=== PATIENT | female | born 1935 | race Caucasian/White ===

== ENCOUNTER 2017-12-24 18:19 | Emergency (ER) | payer OTHER ==
[~2017-12-24 18:19] MED LIST: HYDR-3533 PO; LATA.005%O EACH EYE; SIMV20TA PO; ULTR50TA PO; glaucoma eye drops EACH EYE
[2017-12-24 18:25] VITALS: BP 118/57; PULSE 88; RESP 20; TEMP 97.7; O2SAT 94
[2017-12-24] MEDS ORDERED: IBAN150T3 PO (18:47)
[2017-12-24] MEDS ORDERED: TRAV0.00 EACH EYE (18:47)
[2017-12-24] MEDS ORDERED: SIMV20TA PO (18:47)
[2017-12-24] MEDS ORDERED: TIMO5TAB PO (18:47)
[2017-12-24] MEDS ORDERED: BACT800T5 PO (18:48)
--- NOTE | 2017-12-24 18:59 | PD ---
HPI Chief Complaint: Respiratory Symptoms Time Seen by Provider: 18:36 Travel History International Travel<30 days: No Contact w/Intl Traveler<30days: No Traveled to known affect area: No History of Present Illness HPI 82yo F with PMH of HLD presents to the ED with c/o cough, sob and chest tightness for about 6 days. Pt said her PMD Dr. Zhang 3 days ago and was started on bactrim to prevent infection. Pt said her symptoms has worsen since then. Pt's chest tightness is with coughing and midsternal. Denies smoking cig. Denies any fever, n/v, abdominal pain, focal weakness or numbness. PFSH Past Medical History Arthritis: Yes Asthma: No Autoimmune Disease: No Blood Disorders: No Anxiety: No Depression: No Heart Rhythm Problems: No Cancer: No Cardiovascular Problems: No High Cholesterol: Yes Chemotherapy: No Chest Pain: No Congestive Heart Failure: No COPD: No Cerebrovascular Accident: No Diabetes: No Diminished Hearing: No Endocrine: No Gastrointestinal Disorders: Yes (hx of constipation) GERD: No Glaucoma: No Genitourinary: No Headaches: No Hepatitis: No Hiatal Hernia: No Hypertension: No Immune Disorder: No Kidney Stones: Yes Musculoskeletal: Yes (ARTHRITIS) Neurologic: No Psychiatric: No Reproductive: No Respiratory: No Myocardial Infarction: No Radiation Therapy: No Renal Failure: No Seizures: No Sickle Cell Disease: No Sleep Apnea: No Thyroid Disease: No Ulcer: No Influenza Vaccination: No Menopausal: Yes Past Surgical History Abdominal Surgery: Yes (APPENDECTOMY) AICD: No Appendectomy: Yes Arteriovenous Shunt: No Cardiac Surgery: No Cholecystectomy: Yes Ear Surgery: No Endocrine Surgery: No Eye Surgery: No Genitourinary Surgery: Yes (LITHOTRIPSY) Gynecologic Surgery: Yes (HYSTERECTOMY) Hysterectomy: Yes (COMPLETE) Insulin Pump: No Joint Replacement: Yes (bilat knees) Neurologic Surgery: No Oral Surgery: No Thoracic Surgery: No Other Surgery: Yes (right kidney surgery for removal of kidney stone) Social History Alcohol Use: No Tobacco Use: No Substance Use: No Allergies-Medications (Allergen,Severity, Reaction): Coded Allergies: acetaminophen (Unverified Allergy, Severe, NAUSEA, 05/17/17) oxycodone (Unverified Allergy, Severe, NAUSEA, 05/17/17) Reported Meds & Prescriptions Reported Meds & Active Scripts Active Reported Bactrim DS (Sulfamethoxazole-Trimethoprim) 800-160 Mg Tab 1 Tab PO BID Timolol (Timolol Maleate) 5 Mg Tab 5 Mg PO BID Travatan Z Opth Drops (Travoprost) 0.004 % Soln 1 Drop EACH EYE HS Ibandronate (Ibandronate Sodium) 150 Mg Tab 150 Mg PO Q28D Simvastatin 20 Mg Tab 20 Mg PO DAILY Review of Systems Except as stated in HPI: all other systems reviewed are Neg Physical Exam Narrative GENERAL: 82yo F in mild distress. SKIN: Focused skin assessment warm/dry. HEAD: Atraumatic. Normocephalic. EYES: Pupils equal and round. No scleral icterus. No injection or drainage. ENT: No nasal bleeding or discharge. Mucous membranes pink and moist. NECK: Trachea midline. No JVD. CARDIOVASCULAR: Regular rate and rhythm. No murmur appreciated. RESPIRATORY: No accessory muscle use. End expiratory wheezing bilaterally. GASTROINTESTINAL: Abdomen soft, non-tender, nondistended. Hepatic and splenic margins not palpable. MUSCULOSKELETAL: No obvious deformities. No clubbing. No cyanosis. Trace bilateral lower extremity edema. NEUROLOGICAL: Awake and alert. No obvious cranial nerve deficits. Motor grossly within normal limits. Normal speech. PSYCHIATRIC: Appropriate mood and affect; insight and judgment normal. Data Data Last Documented VS Vital Signs Date Time Temp Pulse Resp B/P (MAP) Pulse Ox O2 Delivery O2 Flow Rate FiO2 12/24/17 20:00 84 18 109/60 (76) 94 Room Air 12/24/17 19:08 21 12/24/17 18:25 97.7 Orders Orders Complete Blood Count With Diff (12/24/17 18:53) Basic Metabolic Panel (Bmp) (12/24/17 18:53) B-Type Natriuretic Peptide (12/24/17 18:53) Troponin I (12/24/17 18:53) Influenzae A/B Antigen (12/24/17 18:53) Electrocardiogram (12/24/17 18:53) Chest, Single Ap (12/24/17 18:53) Methylprednisolone So Succ Inj (Solumedr (12/24/17 19:00) Albuterol-Ipratropium Neb (Duoneb Neb) (12/24/17 19:00) Albuterol Neb (Albuterol Neb) (12/24/17 20:30) Guaifen-Dm 200-20 Mg/10 Ml Liq (Robituss (12/24/17 20:45) Labs Laboratory Tests Test 12/24/17 19:25 White Blood Count 5.5 TH/MM3 Red Blood Count 5.23 MIL/MM3 Hemoglobin 14.2 GM/DL Hematocrit 42.5 % Mean Corpuscular Volume 81.3 FL Mean Corpuscular Hemoglobin 27.1 PG Mean Corpuscular Hemoglobin Concent 33.4 % Red Cell Distribution Width 13.7 % Platelet Count 232 TH/MM3 Mean Platelet Volume 8.9 FL Neutrophils (%) (Auto) 54.8 % Lymphocytes (%) (Auto) 35.0 % Monocytes (%) (Auto) 6.5 % Eosinophils (%) (Auto) 3.0 % Basophils (%) (Auto) 0.7 % Neutrophils # (Auto) 3.0 TH/MM3 Lymphocytes # (Auto) 1.9 TH/MM3 Monocytes # (Auto) 0.4 TH/MM3 Eosinophils # (Auto) 0.2 TH/MM3 Basophils # (Auto) 0.0 TH/MM3 CBC Comment DIFF FINAL Differential Comment Blood Urea Nitrogen 14 MG/DL Creatinine 0.92 MG/DL Random Glucose 100 MG/DL Calcium Level 8.2 MG/DL Sodium Level 136 MEQ/L Potassium Level 3.9 MEQ/L Chloride Level 105 MEQ/L Carbon Dioxide Level 21.0 MEQ/L Anion Gap 10 MEQ/L Estimat Glomerular Filtration Rate 58 ML/MIN Troponin I 0.04 NG/ML B-Type Natriuretic Peptide 210 PG/ML MDM Medical Decision Making Medical Screen Exam Complete: Yes Emergency Medical Condition: Yes Interpretation(s) EKG: NSR 83bpm. LAD. Q wave III, aVF. No significant ST elevation. Mild ST depression V3. Differential Diagnosis Pneumonia vs. bronchitis vs. reactive airway disease vs. ACS Narrative Course 82yo F here with cough, sob and chest tightness for 6 days. Pt has mild wheezing on exam so given duonebs and methylprednisolone. Chest tightness is only with cough and do not think it is cardiac. Labs reviewed, no leukocytosis. H/H normal. BNP is mildly elevated at 210. BMP unremarkable. Troponin negative. Influenza negative. CXR showed no acute disease. O2 sat ranges between 93-95% on RA. Pt reevaluated at bedside after treatment and said she feels better. Still has some sob and wheezing so ordered another treatment. Pt offered observation admission but is adamantly refusing. Said she wants to go home. Pt lives with granddaughter who is here with her so instructed to return immediately if symptoms worsen. Pt reevaluated after robitussin and 4th treatment and said she feels fine and wants to go home. Return precautions given. Diagnosis Primary Impression: Bronchitis Patient Instructions: General Instructions Departure Forms: Tests/Procedures Additional Instructions: Please return to the ED if symptoms worsen. Please follow up with your primary care physician in 2-3 days. Med/Other Pt SpecificInfo: Prescription(s) given Scripts Dextromethorphan (Robitussin Lingering Cold) 15 Mg Cap 30 MG PO Q8H Y for COUGH for 5 Days, #30 CAP 0 Refills Prov: Nereyda Willingham DO 12/24/17 Albuterol 18 GM Inh (Ventolin Hfa 18 GM Inh) 90 Mcg/Act Aer 2 PUFF INH Q4H Y for SHORTNESS OF BREATH, #1 INHALER 0 Refills Prov: Nereyda Willingham DO 12/24/17 Prednisone (Prednisone) 20 Mg Tab 20 MG PO BID for 5 Days, #10 TAB 0 Refills Prov: Nereyda Willingham DO 12/24/17 Disposition: 01 DISCHARGE HOME Condition: Stable Nereyda Willingham DO Dec 24, 2017 18:59
[2017-12-24 19:00] VITALS: BP 107/55; PULSE 87; RESP 20; O2SAT 94
[2017-12-24] MEDS ORDERED: methylPREDNISolone SOD SUCC 125 MG/2 ML VIAL IV PUSH ONE (19:00)
[2017-12-24] MEDS: RESP: ALBUTEROL 2.5 MG/IPRATROPIUM 0.5 MG NEB (SCH) INH ×2 (19:06→19:07)
[2017-12-24 19:08] VITALS: O2SAT 93
[2017-12-24 19:35] LABS: BASOPHIL % 0.7 % (0.0-2.0); EOSINOPHIL # 0.2 TH/MM3 (0-0.4); HEMATOCRIT 42.5 % (35.0-46.0); HEMOGLOBIN 14.2 GM/DL (11.6-15.3); LYMPHOCYTE # 1.9 TH/MM3 (1.0-4.8); MEAN CELL VOLUME 81.3 FL (80.0-100.0); MEAN CORPUSCULAR HEMOGLOBIN 27.1 PG (27.0-34.0); MEAN CORPUSCULAR HGB CONC 33.4 % (32.0-36.0); MEAN PLATELET VOLUME 8.9 FL (7.0-11.0); MONO % 6.5 % (0.0-8.0); MONOCYTE # 0.4 TH/MM3 (0-0.9); NEUT % 54.8 % (16.0-70.0); PLATELET COUNT 232 TH/MM3 (150-450); RED BLOOD COUNT 5.23 MIL/MM3 (4.00-5.30); RED CELL DISTRIBUTION WIDTH 13.7 % (11.6-17.2); WHITE BLOOD COUNT 5.5 TH/MM3 (4.0-11.0)
[2017-12-24 19:43] LABS: CALCIUM 8.2 MG/DL (8.5-10.1)
[2017-12-24 19:47] LABS: CREATININE 0.92 MG/DL (0.50-1.00)
--- NOTE | 2017-12-24 19:51 | RADRPT ---
EXAM DATE/TIME: 12/24/2017 19:00 [facility] COMPARISON: No previous studies available for comparison. INDICATIONS : Chest congestion and cough. Chest pain. MEDICAL HISTORY : None. SURGICAL HISTORY : None. ENCOUNTER: Initial ACUITY: 1 week PAIN SCORE: 4/10 LOCATION: Bilateral chest FINDINGS: A single view of the chest demonstrates the lungs to be symmetrically aerated without evidence of mas s, infiltrate or effusion. The cardiomediastinal contours are unremarkable. Osseous structures are intact. CONCLUSION: No acute disease. Alejandro Alexandre MD FACR on December 24, 2017 at 19:48 Board Certified Radiologist. This report was verified electronically.
[2017-12-24 19:52] LABS: TROPONIN I 0.04 NG/ML (0.02-0.05)
[2017-12-24 20:00] VITALS: BP 109/60; PULSE 84; RESP 18; O2SAT 94
[2017-12-24] MEDS ORDERED: RESP: ALBUTEROL 2.5 MG/3 ML NEB (SCH) NEB ONE (20:30)
[2017-12-24] MEDS ORDERED: guaiFENesin/DEXTROMETHORPHAN 200 MG/20 MG/10 ML CUP PO ONE (20:45)
[2017-12-24] MEDS ORDERED: PRED20 PO (21:12)
[2017-12-24] MEDS ORDERED: VENTAER INH (21:12)
[2017-12-24] MEDS ORDERED: ROBICAP2 PO (21:12)
[2017-12-24 21:28] VITALS: BP 106/70
--- NOTE | 2017-12-25 19:53 | EKG ---
Date Performed: 12/24/2017 Time Performed: 19:04:20 PTAGE: 82 years EKG: Sinus rhythm POSSIBLE RIGHT VENTRICULAR CONDUCTION DELAY LEFT ANTERIOR FASCICULAR BLOCK LATERAL MYOCARDIAL INFARC TION INFERIOR MYOCARDIAL INFARCTION Since the previous tracing, no significant change noted ABNORMAL ECG PREVIOUS TRACING : 08/13/2015 10.10 DOCTOR: Marleny Martínez Interpretating Date/Time 12/25/2017 19:49:22
== END 2017-12-24 21:42 | disposition home or self-care (01) ==
LOC: PHED 18:19
DX: J40 Bronchitis, not specified as acute or chronic (principal); E78.00 Pure hypercholesterolemia, unspecified; R06.02 Shortness of breath
CPT/HCPCS: 71045; 80048; 83880; 84484; 85025; 87804; 93005; 94640; 94664; 96374; 99285; J2930; J7613

== ENCOUNTER 2018-09-20 13:12 | Observation (INO) ==
--- NOTE | 2018-09-20 13:35 | ED ---
HPI General Chief Complaint: Chest Pain Stated Complaint: Chest pain x this am Time Seen by Provider: 09/20/18 13:26 History of Present Illness HPI narrative: Patient is a 83-year-old female with history of high blood pressure, atrial fibrillation on Eliquis, presented today to emergency room for chest pain, multiple episodes lasted seconds since 6:30 in the morning. Patient denies dyspnea, feels weak. Vitals stable. She denies also fever, abdominal pain, has mild middle back pain. Related Data Home Medications Medication Instructions Recorded Confirmed dorzolamide-timolol 1 drp OPHTHALMIC (EYE) BID 09/08/18 09/20/18 ibandronate 150 mg PO QMONTH 09/08/18 09/20/18 simvastatin 5 mg PO QPM 09/08/18 09/20/18 travoprost [Travatan Z] 1 drp OPHTHALMIC (EYE) QPM 09/08/18 09/20/18 Previous Rx's Medication Instructions Recorded apixaban [Eliquis] 5 mg PO BID #60 tab 09/09/18 metoprolol tartrate 12.5 mg PO BID #30 tab 09/09/18 Allergies Allergy/AdvReac Type Severity Reaction Status Date / Time oxycodone AdvReac Intermediate NAUSEA Verified 09/20/18 13:39 Review of Systems ROS: all other systems reviewed are negative Cardiovascular Reports chest pain PMFSH Family History Family History Sister Family history of heart disease Family history of leukemia Brother Family history of diabetes mellitus Social History Social History Substance History: No History of Abuse Second Hand Smoke Exposure: No Smoking Status: Never smoker How Often Do You Have a Drink Containing Alcohol: Never Recent Travel in [facility] within the Last 8 Weeks: No Recent Out of Country Travel within the Last 8 Weeks: No Exam Narrative Exam Narrative: GENERAL: 83-year-old female in no apparent distress. SKIN: Focused skin assessment warm/dry. HEAD: Atraumatic. Normocephalic. EYES: Pupils equal and round. No scleral icterus. No injection or drainage. ENT: No nasal bleeding or discharge. Mucous membranes pink and moist. NECK: Trachea midline. No JVD. CARDIOVASCULAR: Regular rate and rhythm. No murmur appreciated. RESPIRATORY: No accessory muscle use. Clear to auscultation. Breath sounds equal bilaterally. GASTROINTESTINAL: Abdomen soft, non-tender, nondistended. Hepatic and splenic margins not palpable. MUSCULOSKELETAL: No obvious deformities. No clubbing. No cyanosis. No edema. NEUROLOGICAL: Awake and alert. No obvious cranial nerve deficits. Motor grossly within normal limits. Normal speech. PSYCHIATRIC: Appropriate mood and affect; insight and judgment normal. Course Initial Documented Vital Signs Pulse Rate 63 09/20/18 13:25 Pulse Oximetry 96 09/20/18 13:25 Last Documented Vital Signs Temperature 98 F 09/20/18 13:36 Pulse Rate 63 09/20/18 13:56 Respiratory Rate 16 09/20/18 13:56 Blood Pressure 96/51 L 09/20/18 13:56 Pulse Oximetry 96 09/20/18 13:56 Medical Decision Making MDM Narrative Medical decision making narrative: 83-year-old female presented for chest pain, multiple episodes for the last 7 hours, no dyspnea. Cardiac workup ordered. EKG Is within normal limits. Results are pending. 1520: Patient feels better, chest pain resolved, blood pressure improved systolic is 140, first set of cardiac enzymes is normal, patient has UTI as per urine analysis report, treated with Cipro. Patient needs to be admitted to observation for further evaluation for chest pain rule out ACS. Case discussed with Dr. Ann, who agreed with admission to chest pain center. Medical Screen Exam Complete: Yes Emergency Medical Condition: Yes Differential Diagnosis Differential Diagnosis: Chest pain rule out ACS versus A. fib versus musculoskeletal pain. Lab Data Result diagrams: 09/20/18 13:45 09/20/18 13:45 Lab Results 09/20/18 09/20/18 09/20/18 Range/Units 13:45 13:45 13:45 CBC w Diff Auto diff final WBC 8.4 (4.0-11.0) th/mm3 RBC 4.66 (4.00-5.30) mil/mm3 Hgb 12.5 (11.6-15.3) gm/dL Hct 39.0 (35.0-46.0) % MCV 83.8 (80.0-100.0) fL MCH 26.8 L (27.0-34.0) pg MCHC 32.0 (32.0-36.0) % RDW 13.4 (11.6-17.2) % Plt Count 263 D (150-450) th/mm3 MPV 8.7 (7.0-11.0) fL Neut % (Auto) 78.9 H (16.0-70.0) % Lymph % (Auto) 11.9 (9.0-44.0) % [place] % (Auto) 4.4 (0.0-8.0) % Eos % (Auto) 2.4 (0.0-4.0) % Baso % (Auto) 2.4 H (0.0-2.0) % Neut # (Auto) 6.6 (1.8-7.7) th/mm3 Lymph # (Auto) 1.0 (1.0-4.8) th/mm3 [place] # (Auto) 0.4 (0.0-0.9) th/mm3 Eos # (Auto) 0.2 (0.0-0.4) th/mm3 Baso # (Auto) 0.2 (0.0-0.2) th/mm3 WBC Differential . Differential Comment . PT 11.4 (9.8-11.6) sec INR 1.1 Ratio APTT 29.9 (23.4-31.7) sec Sodium 139 (136-145) meq/L Potassium 4.1 (3.5-5.1) meq/L Chloride 107 (98-107) meq/L Carbon Dioxide 24.4 (21.0-32.0) meq/L Anion Gap 8 (5-15) meq/L BUN 14 (7-18) mg/dL Creatinine 0.71 (0.50-1.00) mg/dL Estimated GFR 79 L (>89) mL/min Random Glucose 102 (74-106) mg/dL Calcium 8.1 L (8.5-10.1) mg/dL Total Bilirubin 0.6 (0.2-1.0) mg/dL AST 14 L (15-37) U/L ALT 15 (10-53) U/L Alkaline Phosphatase 56 (45-117) U/L Troponin I Less than 0.02 L (0.02-0.05) ng/mL B-Natriuretic Peptide (0-100) pg/mL Total Protein 7.2 (6.4-8.2) g/dL Albumin 3.2 L (3.4-5.0) g/dL Urine Color (Yellw/Straw) Urine Clarity (Clear) Urine pH (5.0-8.5) Ur Specific [place] (1.002-1.035) Urine Protein (Neg-Trace) mg/dL Urine Glucose (UA) (Negative) mg/dL Urine Ketones (Negative) mg/dL Urine Occult Blood (Negative) Urine Nitrate (Negative) Urine Bilirubin (Negative) Urine Urobilinogen (Less than 2) mg/dL Ur Leukocyte Esterase (Negative) Urine RBC (0-3) /hpf Urine WBC (0-5) /hpf Urine WBC Clumps (None) Ur Squamous Epith Cells (0-5) /hpf Urine Bacteria (None) /hpf Micro UA Comment Ur Microscopic Review Urine Culture Comments 09/20/18 09/20/18 Range/Units 13:45 15:05 CBC w Diff WBC (4.0-11.0) th/mm3 RBC (4.00-5.30) mil/mm3 Hgb (11.6-15.3) gm/dL Hct (35.0-46.0) % MCV (80.0-100.0) fL MCH (27.0-34.0) pg MCHC (32.0-36.0) % RDW (11.6-17.2) % Plt Count (150-450) th/mm3 MPV (7.0-11.0) fL Neut % (Auto) (16.0-70.0) % Lymph % (Auto) (9.0-44.0) % [place] % (Auto) (0.0-8.0) % Eos % (Auto) (0.0-4.0) % Baso % (Auto) (0.0-2.0) % Neut # (Auto) (1.8-7.7) th/mm3 Lymph # (Auto) (1.0-4.8) th/mm3 [place] # (Auto) (0.0-0.9) th/mm3 Eos # (Auto) (0.0-0.4) th/mm3 Baso # (Auto) (0.0-0.2) th/mm3 WBC Differential Differential Comment PT (9.8-11.6) sec INR Ratio APTT (23.4-31.7) sec Sodium (136-145) meq/L Potassium (3.5-5.1) meq/L Chloride (98-107) meq/L Carbon Dioxide (21.0-32.0) meq/L Anion Gap (5-15) meq/L BUN (7-18) mg/dL Creatinine (0.50-1.00) mg/dL Estimated GFR (>89) mL/min Random Glucose (74-106) mg/dL Calcium (8.5-10.1) mg/dL Total Bilirubin (0.2-1.0) mg/dL AST (15-37) U/L ALT (10-53) U/L Alkaline Phosphatase (45-117) U/L Troponin I (0.02-0.05) ng/mL B-Natriuretic Peptide 138 H (0-100) pg/mL Total Protein (6.4-8.2) g/dL Albumin (3.4-5.0) g/dL Urine Color Yellow (Yellw/Straw) Urine Clarity Cloudy H (Clear) Urine pH 7.0 (5.0-8.5) Ur Specific [place] 1.010 (1.002-1.035) Urine Protein Negative (Neg-Trace) mg/dL Urine Glucose (UA) Negative (Negative) mg/dL Urine Ketones Negative (Negative) mg/dL Urine Occult Blood Small H (Negative) Urine Nitrate Positive H (Negative) Urine Bilirubin Negative (Negative) Urine Urobilinogen 2.0 H (Less than 2) mg/dL Ur Leukocyte Esterase Trace H (Negative) Urine RBC 0-3 (0-3) /hpf Urine WBC 9-20 H (0-5) /hpf Urine WBC Clumps Few H (None) Ur Squamous Epith Cells 6-10 H (0-5) /hpf Urine Bacteria Many H (None) /hpf Micro UA Comment Culture indicated Ur Microscopic Review Microscopic reviewed Urine Culture Comments Culture indicated Imaging Data Radiologist's impression: Chest X-Ray 09/20/18 13:32 CONCLUSION: 1. Small left pleural effusion. 2. No focal infiltrate or pulmonary vascular congestion. ECG Data EKG Prior to Arrival: No Attestation: I personally reviewed and interpreted this ECG as follows: Prior ECG tracings: available for review Interpretation: Normal sinus rhythm at rate 67, incomplete right bundle branch block, no ST elevation. Discharge Plan Discharge Disposition Patient Disposition: ED Admit(ED Internal Use Only) Discharge Condition Condition: Fair Discharge Order Discharge Orders: ED Use Only Admit Order (Routine); Ordered 09/20/18 Ordered By: Osmani Yanes Discharge Details Diagnosis: Atypical chest pain, Acute UTI (urinary tract infection) Physicians Team ED Provider: Osmani Yanes Primary Care Provider: Dina Zhang Rxs /Orders / Referrals /Forms Prescriptions: No Action travoprost [Travatan Z] 0.004 % Drops 1 drp OPHTHALMIC (EYE) QPM RF: 0 simvastatin 5 mg Tablet 5 mg PO QPM RF: 0 dorzolamide-timolol 22.3-6.8 mg/mL Drops 1 drp OPHTHALMIC (EYE) BID RF: 0 ibandronate 150 mg Tablet 150 mg PO QMONTH RF: 0 metoprolol tartrate 25 mg Tablet 12.5 mg PO BID Qty: 30 RF: 0 apixaban [Eliquis] 5 mg Tablet 5 mg PO BID Qty: 60 RF: 0 Discharge Instructions Patient Printed Instructions: Chest Pain (ED) Discharge Interventions Interventions: Vital Signs Last Done: 09/20/18 13:56 Status ED Status: Admitted Observation Patient
[2018-09-20] MEDS ORDERED: Sod Chloride 0.9% Inj 1,000 ML IV.SIG SCH (14:00)
[2018-09-20 14:02] LABS: Baso # (Auto) 0.2 th/mm3 (0.0-0.2); Baso % (Auto) 2.4 % (0.0-2.0); Eos # (Auto) 0.2 th/mm3 (0.0-0.4); Eos % (Auto) 2.4 % (0.0-4.0); Hemoglobin 12.5 gm/dL (11.6-15.3); Lymph % (Auto) 11.9 % (9.0-44.0); Mean Corpuscular Hemoglobin 26.8 pg (27.0-34.0); Mean Corpuscular Volume 83.8 fL (80.0-100.0); Mean Platelet Volume 8.7 fL (7.0-11.0); Mono # (Auto) 0.4 th/mm3 (0.0-0.9); Mono % (Auto) 4.4 % (0.0-8.0); Neut # (Auto) 6.6 th/mm3 (1.8-7.7); Neut % (Auto) 78.9 % (16.0-70.0); Platelet Count 263 th/mm3 (150-450); Red Blood Count 4.66 mil/mm3 (4.00-5.30); Red Cell Distribution Width 13.4 % (11.6-17.2); White Blood Count 8.4 th/mm3 (4.0-11.0)
--- NOTE | 2018-09-20 14:06 | XR ---
EXAM DATE: 09/20/2018 1:44 PM EST AGE/SEX: 83 years / Female INDICATIONS: Chest pain. CLINICAL DATA: This is the patient's initial encounter. Patient reports that signs and symptoms have been present for 1 day and indicates a pain score of 3/10. MEDICAL/SURGICAL HISTORY: Hypercholesterolemia. Renal calculi. Osteoarthritis. A-fib. Compre ssion fx. Appendectomy. Cholecystectomy. Hysterectomy. Lithotripsy. COMPARISON: [facility], CHEST 1V SINGLE AP, 09/08/2018. . FINDINGS: Small left pleural effusion is noted. The heart is normal. The pulmonary vascular pattern is normal. The lungs are otherwise clear. CONCLUSION: 1. Small left pleural effusion. 2. No focal infiltrate or pulmonary vascular congestion. Electronically signed by: Misael Menendez MD Board Certified Radiologist 09/20/2018 2:04 PM EST
[2018-09-20 14:13] LABS: Chloride 107 meq/L (98-107); Potassium 4.1 meq/L (3.5-5.1); Sodium 139 meq/L (136-145)
[2018-09-20 14:16] LABS: Albumin 3.2 g/dL (3.4-5.0); Anion Gap 8 meq/L (5-15); Calcium 8.1 mg/dL (8.5-10.1); Carbon Dioxide 24.4 meq/L (21.0-32.0)
[2018-09-20 14:17] LABS: Blood Urea Nitrogen 14 mg/dL (7-18); Glucose,Random 102 mg/dL (74-106)
[2018-09-20 14:19] LABS: Alanine Aminotransferase 15 U/L (10-53)
[2018-09-20 14:20] LABS: Activated Partial Thrombo Time 29.9 sec (23.4-31.7); Aspartate Aminotransferase 14 U/L (15-37); Glomerular Filtration Rate 79 mL/min (>89); INR 1.1 Ratio; Prothrombin Time 11.4 sec (9.8-11.6)
[2018-09-20 14:21] LABS: Total Protein 7.2 g/dL (6.4-8.2)
[2018-09-20 14:22] LABS: Alkaline Phosphatase 56 U/L (45-117)
[2018-09-20] MEDS ORDERED: Morphine Sulfate Inj 2 MG/ML Vial IV.PUSH ONE (15:03)
[2018-09-20 15:12] LABS: Bilirubin,Urine Negative (Negative); Clarity,Urine Cloudy (Clear); Color,Urine Yellow (Yellw/Straw); Glucose,Urine (UA) Negative (Negative); Leukocyte Esterase,Urine Trace (Negative); Nitrite,Urine Positive (Negative)
[2018-09-20 15:16] LABS: RBC,Urine 0-3 /hpf (0-3)
[2018-09-20 15:17] LABS: Bacteria,Urine Many /hpf
[2018-09-20] MEDS ORDERED: Ciprofloxacin 500 MG Tablet PO ONE (15:18)
[2018-09-20] MEDS ORDERED: Regadenoson Inj 0.4 MG/5 ML Syringe IV.PUSH ONE (15:37)
[2018-09-20] MEDS ORDERED: Acetaminophen 500 MG Tablet PO PRN (17:16)
[2018-09-20] MEDS ORDERED: Morphine Inj 4 MG/ML Vial IV.PUSH PRN (17:16)
[2018-09-20] MEDS ORDERED: Melatonin 5 MG Tablet PO PRN (17:18)
--- NOTE | 2018-09-20 17:27 | P.HP ---
History of Present Illness Primary Care Physician: Dina Zhang MD Chief Complaint: chest pain History of Present Illness: 83-year-old female with known history of hyperlipidemia, glaucoma, kidney stones, lumbar compression fracture, recently diagnosed atrial fibrillation who presented for cold chills and chest heaviness. Patient was just recently in the hospital for new onset atrial fibrillation. Patient was given Cardizem at that time and converted to normal sinus rhythm. Patient was diagnosed with paroxysmal atrial fibrillation, patient was ruled out for acute coronary event with serial cardiac enzymes that were negative. Director Of Food And Beverage Services evaluated the patient and because of her chads score of 2 patient was started on Eliquis for anticoagulation and was started on metoprolol for rate control. Patient did undergo echocardiogram at that time which did show ejection fraction 55-60% with normal ventricular function. Mild aortic valve stenosis. Patient was doing fine at home until this morning when she got up at approximately 8 AM and started developing some extremity shaking and cold sensation. Approximately 2 hours after that she felt a heaviness in her chest in which she described as a 6/10 on a pain scale that radiated into her back. Denied any diaphoresis, shortness of breath, dyspnea. Because the discomfort persisted she was brought to the ER by her family for further evaluation. Patient did have workup done in emergency department with unremarkable cardiac enzymes and EKG indicating sinus rhythm with incomplete right bundle branch block. ER physician did contact cardiology person investigator who recommended that the patient be observed in the chest pain center. Upon evaluating the patient this afternoon she does continue to have the discomfort which has remained constant without any improvement with medications. Further workup indicated possible urinary tract infection. - Diagnosis (1) Atypical chest pain (2) Acute UTI (urinary tract infection) Review of Systems All other systems reviewed negative except as stated in HPI Constitutional: Reports chills Cardiovascular: Reports chest pain PMFSH - History History Provided By: Patient - Medical History Medical History: Medical History (Last Reviewed 09/20/18 @ 17:24 by GWEN Hurd) Glaucoma High cholesterol History of compression fracture of spine Kidney stone Osteoarthritis - Surgical History Surgical History: Surgical History (Last Reviewed 09/20/18 @ 17:24 by GWEN Hurd) History of appendectomy History of hysterectomy History of lithotripsy Hx of cholecystectomy Knee joint replacement status - Family History Family History: Family History (Last Reviewed 09/20/18 @ 17:24 by GWEN Hurd) Sister Family history of heart disease Family history of leukemia Brother Family history of diabetes mellitus - Tobacco History Second Hand Smoke Exposure: No Tobacco Use In Past 30 Days: No Smoking Status: Never smoker - Alcohol History How Often Do You Have a Drink Containing Alcohol: Never - Substance Use History Substance History: No History of Abuse - Travel History Recent Travel in the [place] Within the Last 8 Weeks: No Recent Travel Out of the Country Within the Last 8 Weeks: No - Immunization History Tetanus Immunization: <5 Years Medications and Allergies Active Medications: Active Medications Acetaminophen (Tylenol) 500 mg PO Q4H PRN PRN Reason: HEADACHE Hydrocodone Bitart/Acetaminophen ([place] 7.5/325) 1 tab PO Q4H PRN PRN Reason: PAIN SCALE 1 TO 7 Apixaban (Eliquis) 5 mg PO BID [facility] Aspirin (Aspirin) 325 mg PO DAILY [facility] Dorzolamide/Timolol (Cosopt 2/0.5% Opth Drops) drop EACH EYE BID [facility] Melatonin (Melatonin) 5 mg PO HS PRN PRN Reason: INSOMNIA Metoprolol Tartrate (Lopressor) 12.5 mg PO BID [facility] Morphine Sulfate (Morphine Inj) 2 mg IV.PUSH Q4H PRN PRN Reason: PAIN SCALE 8 TO 10 Nitroglycerin (Nitrostat Sl) 0.4 mg SL Q5M PRN PRN Reason: CHEST PAIN Non-Formulary Medication (Simvastatin [Simvastatin]) 5 mg PO QPM [facility] Sodium Chloride (Ns Flush) 2 ml IV.FLUSH UNSCH PRN PRN Reason: FLUSH AFTER USING IV ACCESS Sodium Chloride (Ns Flush) 2 ml IV.FLUSH BID [facility] Allergies Allergy/AdvReac Type Severity Reaction Status Date / Time oxycodone AdvReac Intermediate NAUSEA Verified 09/20/18 13:39 Home Medications Medication Instructions Recorded Confirmed Type dorzolamide-timolol 1 drp OPHTHALMIC (EYE) BID 09/08/18 09/20/18 History ibandronate 150 mg PO QMONTH 09/08/18 09/20/18 History simvastatin 5 mg PO QPM 09/08/18 09/20/18 History travoprost [Travatan Z] 1 drp OPHTHALMIC (EYE) QPM 09/08/18 09/20/18 History Exam Vital signs: Vital Signs 09/20/18 13:25 09/20/18 13:34 09/20/18 13:36 Temperature 98 F 98 F Pulse Rate 63 66 66 Respiratory Rate 12 Blood Pressure 133/66 133/66 Pulse Oximetry 96 97 97 09/20/18 13:56 09/20/18 15:30 Temperature Pulse Rate 63 62 Respiratory Rate 16 16 Blood Pressure 96/51 L 140/61 Pulse Oximetry 96 96 Intake & Output 09/19/18 09/20/18 09/20/18 18:59 06:59 18:59 Intake Total 1000 / 1000 Balance 1000 / 1000 Weight 74 kg Intake: IV 1000 / 1000 NS Inj 1,000 ML @ 1000 mls/hr 1000 / 1000 IV.SIG BOLUS ALAN Rx#:[id number] Narrative: GENERAL: Well-developed, well-nourished, in no acute distress. alert and orientated HEENT: Head is normocephalic without any lesions or masses noted. Facial features are symmetric. Eyes: Pupils equal round reactive to light. Extraocular muscles are intact. Conjunctivae were clear. Oropharyngeal: Pharynx without any erythema edema. Tongue is midline without deviation. Buccal mucosa is moist without any masses or lesions NECK: Supple without any masses. Trachea midline no deviation. No JVD, no bruits are appreciated CARDIAC: Regular rhythm, regular rate. S1/S2 are heard. 2/6 ejection murmur, no gallops or rubs. LUNGS: Clear to auscultation bilaterally. No wheeze, rhonchi or rales. No use of accessory muscles on inspiration or expiration. ABDOMEN: Soft, nontender. Nondistended. Bowel sounds heard in all 4 quadrants. No organomegaly or masses. Negative rebound, negative guarding EXTREMITIES: No edema, pulses are equal bilaterally. No cyanosis or clubbing NEUROLOGY: Mood and affect appear appropriate. Cranial nerves II through XII grossly intact. Muscle strength 5/5 in upper and lower extremities bilaterally. Deep tendon reflexes are 2+ in upper and lower extremities bilaterally. Results - Labs CBC & Chem 7: 09/20/18 13:45 09/20/18 13:45 Labs: Laboratory Results - last 24 hr 09/20/18 09/20/18 09/20/18 13:45 13:45 13:45 CBC w Diff Auto diff final WBC 8.4 RBC 4.66 Hgb 12.5 Hct 39.0 MCV 83.8 MCH 26.8 L MCHC 32.0 RDW 13.4 Plt Count 263 D MPV 8.7 Neut % (Auto) 78.9 H Lymph % (Auto) 11.9 [place] % (Auto) 4.4 Eos % (Auto) 2.4 Baso % (Auto) 2.4 H Neut # (Auto) 6.6 Lymph # (Auto) 1.0 [place] # (Auto) 0.4 Eos # (Auto) 0.2 Baso # (Auto) 0.2 WBC Differential . Differential Comment . PT 11.4 INR 1.1 APTT 29.9 Sodium 139 Potassium 4.1 Chloride 107 Carbon Dioxide 24.4 Anion Gap 8 BUN 14 Creatinine 0.71 Estimated GFR 79 L Random Glucose 102 Calcium 8.1 L Total Bilirubin 0.6 AST 14 L ALT 15 Alkaline Phosphatase 56 Troponin I Less than 0.02 L B-Natriuretic Peptide Total Protein 7.2 Albumin 3.2 L Urine Color Urine Clarity Urine pH Ur Specific [place] Urine Protein Urine Glucose (UA) Urine Ketones Urine Occult Blood Urine Nitrate Urine Bilirubin Urine Urobilinogen Ur Leukocyte Esterase Urine RBC Urine WBC Urine WBC Clumps Ur Squamous Epith Cells Urine Bacteria Micro UA Comment Ur Microscopic Review Urine Culture Comments 09/20/18 09/20/18 13:45 15:05 CBC w Diff WBC RBC Hgb Hct MCV MCH MCHC RDW Plt Count MPV Neut % (Auto) Lymph % (Auto) [place] % (Auto) Eos % (Auto) Baso % (Auto) Neut # (Auto) Lymph # (Auto) [place] # (Auto) Eos # (Auto) Baso # (Auto) WBC Differential Differential Comment PT INR APTT Sodium Potassium Chloride Carbon Dioxide Anion Gap BUN Creatinine Estimated GFR Random Glucose Calcium Total Bilirubin AST ALT Alkaline Phosphatase Troponin I B-Natriuretic Peptide 138 H Total Protein Albumin Urine Color Yellow Urine Clarity Cloudy H Urine pH 7.0 Ur Specific [place] 1.010 Urine Protein Negative Urine Glucose (UA) Negative Urine Ketones Negative Urine Occult Blood Small H Urine Nitrate Positive H Urine Bilirubin Negative Urine Urobilinogen 2.0 H Ur Leukocyte Esterase Trace H Urine RBC 0-3 Urine WBC 9-20 H Urine WBC Clumps Few H Ur Squamous Epith Cells 6-10 H Urine Bacteria Many H Micro UA Comment Culture indicated Ur Microscopic Review Microscopic reviewed Urine Culture Comments Culture indicated - Imaging Impressions Chest X-Ray 09/20/18 13:32 CONCLUSION: 1. Small left pleural effusion. 2. No focal infiltrate or pulmonary vascular congestion. Caprini VTE Risk Assessment Caprini VTE Risk Assessment: Moderate/High Risk (score >= 2) Caprini Risk Assessment Model: Point Value = 1 Point Value = 2 Point Value = 3 Point Value = 5 Age 41-60 Minor surgery BMI > 25 kg/m2 Swollen legs Varicose veins or History of unexplained or recurrent spontaneous Oral contraceptives or hormone replacement Sepsis (< 1 month) Serious lung disease, including pneumonia (< 1 month) Abnormal pulmonary function Acute myocardial infarction Congestive heart failure (< 1 month) History of inflammatory bowel disease Medical patient at bed rest Age 61-74 Arthroscopic surgery Major open surgery (> 45 min) Laparoscopic surgery (> 45 min) Malignancy Confined to bed (> 72 hours) Immobilizing plaster cast Central venous access Age >= 75 History of VTE Family history of VTE Factor V Leiden Prothrombin [id number] Lupus anticoagulant Anticardiolipin antibodies Elevated serum homocysteine Heparin-induced thrombocytopenia Other congenital or acquired thrombophilia Stroke (< 1 month) Elective arthroplasty Hip, pelvis, or leg fracture Acute spinal cord injury (< 1 month) Prophylaxis Regimen: Total Risk Factor Score Risk Level Prophylaxis Regimen 0-1 Low Early ambulation 2 Moderate Order ONE of the following: *Sequential Compression Device (SCD) *Heparin 5000 units SQ BID 3-4 Higher Order ONE of the following medications: *Heparin 5000 units SQ TID *Enoxaparin/Lovenox 40 mg SQ daily (WT < 150 kg, CrCl > 30 mL/min) *Enoxaparin/Lovenox 30 mg SQ daily (WT < 150 kg, CrCl > 10-29 mL/min) *Enoxaparin/Lovenox 30 mg SQ BID (WT < 150 kg, CrCl > 30 mL/min) AND/OR *Sequential Compression Device (SCD) 5 or more Highest Order ONE of the following medications: *Heparin 5000 units SQ TID (Preferred with Epidurals) *Enoxaparin/Lovenox 40 mg SQ daily (WT < 150 kg, CrCl > 30 mL/min) *Enoxaparin/Lovenox 30 mg SQ daily (WT < 150 kg, CrCl > 10-29 mL/min) *Enoxaparin/Lovenox 30 mg SQ BID (WT < 150 kg, CrCl > 30 mL/min) AND *Sequential Compression Device (SCD) Assessment and Plan - Assessment (1) Atypical chest pain Code(s): R07.89 - Other chest pain Status: Acute (2) Acute UTI (urinary tract infection) Code(s): N39.0 - Urinary tract infection, site not specified Status: Acute - Plan Atypical chest pain -Patient does have increased risk factors include age, hypertension, hyperlipidemia, family history of heart disease -We will continue to rule the patient out for acute coronary event with serial cardiac enzymes and serial EKGs -If patient ruled out for acute coronary event will anticipate myocardial perfusion study to rule out any underlying ischemia -Continue aspirin, beta-sol, nitroglycerin as needed, statin -Continue monitor telemetry Urinary tract infection -Patient was given Cipro in emergency department, will continue Rocephin 1 g IV daily -Continue monitor culture for appropriate antibiotics Atrial fibrillation, hyperlipidemia -Home medications were continued -Patient anticoagulated with Eliquis DVT prevention -Patient is on Eliquis
[2018-09-20 19:16] LABS: Creatine Kinase 54 U/L (26-192)
[2018-09-20] MEDS: Metoprolol Tartrate 25 MG Tablet PO SCH (20:25)
[2018-09-20] MEDS: Dorzolamide-Timolol 2/0.5% Opth Drops 10 ML Bottle EACH EYE SCH (20:33)
[2018-09-20] MEDS ORDERED: Latanoprost 0.005% Opth Drops 2.5 ML Bottle EACH EYE SCH (21:00)
[2018-09-20 22:01] LABS: Creatine Kinase 72 U/L (26-192)
[2018-09-21 00:38] VITALS: O2SAT 95
--- NOTE | 2018-09-21 07:43 | P.PNIM ---
Subjective Interval history: 83-year-old female seen examined today for follow-up on chest heaviness. Patient states that she has not had any recurrence of the discomfort. Denies any new complaints. Vital signs are stable. Patient remains afebrile. Physical Exam Vital signs: Vital Signs 09/20/18 13:25 09/20/18 13:34 09/20/18 13:36 Temperature 98 F 98 F Pulse Rate 63 66 66 Respiratory Rate 12 Blood Pressure 133/66 133/66 Pulse Oximetry 96 97 97 09/20/18 13:56 09/20/18 15:30 09/20/18 17:00 Temperature Pulse Rate 63 62 67 Respiratory Rate 16 16 16 Blood Pressure 96/51 L 140/61 131/65 Pulse Oximetry 96 96 96 09/20/18 17:30 09/20/18 20:00 09/20/18 20:30 Temperature 98.7 F 100.1 F H Pulse Rate 65 72 Respiratory Rate 20 16 Blood Pressure 135/64 133/59 L Pulse Oximetry 100 96 09/21/18 00:00 09/21/18 04:00 Temperature 100.5 F H 99.1 F Pulse Rate 71 67 Respiratory Rate 18 18 Blood Pressure 109/55 L 96/50 L Pulse Oximetry 95 95 Intake & Output 09/20/18 09/21/18 09/21/18 18:59 06:59 18:59 Intake Total 1000 / 1000 465 / 465 Balance 1000 / 1000 465 / 465 Weight 74 kg 75.3 kg Intake: IV 1000 / 1000 100 / 100 NS Inj 1,000 ML @ 1000 mls/hr 1000 / 1000 IV.SIG BOLUS ALAN Rx#:[id number] Rocephin Inj 1,000 MG In NS Inj 100 / 100 100 ML @ 200 mls/hr IV.SIG Q24H ALAN Rx#:[id number] Oral 365 / 365 Other: # Voids 3 Date of Last Bowel Movement 09/20/18 09/20/18 Weight On Admission 74 kg Narrative: GENERAL: Well-developed, well-nourished, in no acute distress. alert and orientated HEENT: Head is normocephalic without any lesions or masses noted. Facial features are symmetric. Eyes: Extraocular muscles are intact. Conjunctivae were clear. NECK: Supple without any masses. Trachea midline no deviation. No JVD, CARDIAC: Irregular rhythm, irregular rate S1/S2 are heard. 2/6 ejection murmur , no gallops or rubs. LUNGS: Clear to auscultation bilaterally. No wheeze, rhonchi or rales. No use of accessory muscles on inspiration or expiration. ABDOMEN: Soft, nontender. Nondistended. Bowel sounds heard in all 4 quadrants. No organomegaly or masses. Negative rebound, negative guarding EXTREMITIES: No edema, pulses are equal bilaterally. No cyanosis or clubbing NEUROLOGY: Mood and affect appear appropriate. Cranial nerves II through XII grossly intact. Moving all extremities, speech is clear Results - Labs CBC & Chem 7: 09/20/18 13:45 09/20/18 13:45 Laboratory Results - last 24 hr 09/20/18 09/20/18 09/20/18 13:45 13:45 13:45 CBC w Diff Auto diff final WBC 8.4 RBC 4.66 Hgb 12.5 Hct 39.0 MCV 83.8 MCH 26.8 L MCHC 32.0 RDW 13.4 Plt Count 263 D MPV 8.7 Neut % (Auto) 78.9 H Lymph % (Auto) 11.9 [place] % (Auto) 4.4 Eos % (Auto) 2.4 Baso % (Auto) 2.4 H Neut # (Auto) 6.6 Lymph # (Auto) 1.0 [place] # (Auto) 0.4 Eos # (Auto) 0.2 Baso # (Auto) 0.2 WBC Differential . Differential Comment . PT 11.4 INR 1.1 APTT 29.9 Sodium 139 Potassium 4.1 Chloride 107 Carbon Dioxide 24.4 Anion Gap 8 BUN 14 Creatinine 0.71 Estimated GFR 79 L Random Glucose 102 Calcium 8.1 L Total Bilirubin 0.6 AST 14 L ALT 15 Alkaline Phosphatase 56 Total Creatine Kinase Troponin I Less than 0.02 L B-Natriuretic Peptide Total Protein 7.2 Albumin 3.2 L Urine Color Urine Clarity Urine pH Ur Specific [place] Urine Protein Urine Glucose (UA) Urine Ketones Urine Occult Blood Urine Nitrate Urine Bilirubin Urine Urobilinogen Ur Leukocyte Esterase Urine RBC Urine WBC Urine WBC Clumps Ur Squamous Epith Cells Urine Bacteria Micro UA Comment Ur Microscopic Review Urine Culture Comments 09/20/18 09/20/18 09/20/18 13:45 15:05 18:00 CBC w Diff WBC RBC Hgb Hct MCV MCH MCHC RDW Plt Count MPV Neut % (Auto) Lymph % (Auto) [place] % (Auto) Eos % (Auto) Baso % (Auto) Neut # (Auto) Lymph # (Auto) [place] # (Auto) Eos # (Auto) Baso # (Auto) WBC Differential Differential Comment PT INR APTT Sodium Potassium Chloride Carbon Dioxide Anion Gap BUN Creatinine Estimated GFR Random Glucose Calcium Total Bilirubin AST ALT Alkaline Phosphatase Total Creatine Kinase 54 Troponin I Less than 0.02 L B-Natriuretic Peptide 138 H Total Protein Albumin Urine Color Yellow Urine Clarity Cloudy H Urine pH 7.0 Ur Specific [place] 1.010 Urine Protein Negative Urine Glucose (UA) Negative Urine Ketones Negative Urine Occult Blood Small H Urine Nitrate Positive H Urine Bilirubin Negative Urine Urobilinogen 2.0 H Ur Leukocyte Esterase Trace H Urine RBC 0-3 Urine WBC 9-20 H Urine WBC Clumps Few H Ur Squamous Epith Cells 6-10 H Urine Bacteria Many H Micro UA Comment Culture indicated Ur Microscopic Review Microscopic reviewed Urine Culture Comments Culture indicated 09/20/18 20:15 CBC w Diff WBC RBC Hgb Hct MCV MCH MCHC RDW Plt Count MPV Neut % (Auto) Lymph % (Auto) [place] % (Auto) Eos % (Auto) Baso % (Auto) Neut # (Auto) Lymph # (Auto) [place] # (Auto) Eos # (Auto) Baso # (Auto) WBC Differential Differential Comment PT INR APTT Sodium Potassium Chloride Carbon Dioxide Anion Gap BUN Creatinine Estimated GFR Random Glucose Calcium Total Bilirubin AST ALT Alkaline Phosphatase Total Creatine Kinase 72 Troponin I Less than 0.02 L B-Natriuretic Peptide Total Protein Albumin Urine Color Urine Clarity Urine pH Ur Specific [place] Urine Protein Urine Glucose (UA) Urine Ketones Urine Occult Blood Urine Nitrate Urine Bilirubin Urine Urobilinogen Ur Leukocyte Esterase Urine RBC Urine WBC Urine WBC Clumps Ur Squamous Epith Cells Urine Bacteria Micro UA Comment Ur Microscopic Review Urine Culture Comments - Imaging Impressions Chest X-Ray 09/20/18 13:32 CONCLUSION: 1. Small left pleural effusion. 2. No focal infiltrate or pulmonary vascular congestion. Assessment and Plan - Assessment (1) Atypical chest pain Code(s): R07.89 - Other chest pain Status: Acute (2) Acute UTI (urinary tract infection) Code(s): N39.0 - Urinary tract infection, site not specified Status: Acute - Plan Atypical chest pain -Patient does have increased risk factors include age, hypertension, hyperlipidemia, family history of heart disease -Patient has been ruled out for acute coronary event with serial cardiac enzymes that have remained negative -Serial EKGs were performed and show sinus rhythm with an with right bundle branch block -Myocardial perfusion study was performed and indicated no signs of ischemia, low risk -Continue aspirin, beta-sol, nitroglycerin as needed, statin -Continue monitor telemetry Urinary tract infection -Continue Rocephin 1 g IV daily -Continue monitor culture for appropriate antibiotics Atrial fibrillation, hyperlipidemia -Home medications were continued -Patient anticoagulated with Eliquis DVT prevention -Patient is on Eliquis Discharge Planning: Discharge home in stable condition Activity: Ad maikel. Diet: Healthy heart diet Medication per medication reconciliation Follow-up with primary medical doctor in 1 week
[2018-09-21] MEDS ORDERED: Aspirin 325 MG Tablet PO SCH (09:00)
[2018-09-21] MEDS: Metoprolol Tartrate 25 MG Tablet PO SCH (09:09)
[2018-09-21] MEDS: Dorzolamide-Timolol 2/0.5% Opth Drops 10 ML Bottle EACH EYE SCH (09:12)
[2018-09-21 10:04] VITALS: RESP 20
--- NOTE | 2018-09-21 12:54 | NM ---
EXAM DATE: 09/21/2018 12:36 PM EST AGE/SEX: 83 years / Female INDICATIONS:Angina. . Chest heaviness radiating to back. CLINICAL DATA: This is the patient's initial encounter. Patient reports that signs and symptoms have been present for 2 days and indicates a pain score of 6/10. MEDICAL/SURGICAL HISTORY: Hypercholesterolemia. Renal calculi. Osteoarthritis. Compression f racture of spine. Cholecystectomy. Appendectomy. Hysterectomy. Lithotripsy, Total knee replacemen t. COMPARISON: No prior exams available for comparison. DOSE: 8.8 mCi Tc 99m Myoview at rest 26.5 mCi [id number] at stress 0.4 mg Lexiscan STRESS SYMPTOMS: Dyspnea. EJECTION FRACTION: >70% % TECHNIQUE: The patient underwent pharmacologic stress with infusion of prescribed dose. Continuous ECG tracing was monitored during stress. Gated SPECT imaging was performed after stress and conventi onal SPECT imaging was performed at rest. The examination was performed on a SPECT/CT scanner, both attenuation and non-corrected datasets were reviewed. FINDINGS: Distribution: The maximum perfused segment at stress is in the anterolateral wall. Perfusion Study: The pattern of perfusion at stress is within normal limits. No fixed or reversible perfusion defect is identified. Gated Study: There are intact wall motion and wall thickening without hypokinetic or dyskinetic segm ents. The ejection fraction is calculated at >70%%. RISK CATEGORY: Low (<1% Annual Motality Rate) CONCLUSION: 1. No fixed or reversible perfusion defect is identified. 2. Normal left ventricle wall motion and ejection fraction. Electronically signed by: Avila Mccrary MD Board Certified Radiologist 09/21/2018 12:52 PM EST
[2018-09-21 12:58] VITALS: BP 99/56; PULSE 65; TEMP 97.5
--- NOTE | 2018-09-21 16:46 | TR ---
Date Performed: 09/21/2018 Time Performed: 10:49:41 DOCTOR: Mateo Toney DRUG LIST: CLINICAL HISTORY: REASON FOR TEST: Angina REASON FOR ENDING: OBSERVATION: CONCLUSION: COMMENTS: Lexiscan stress test was performed under standard four minute protocol. Radionuclide was injected one minute prior to ending the test. No electrocardiographic abormalities were present t o suggest ischemia. Nuclear imaging and interpretation are pending.
--- NOTE | 2018-09-21 16:59 | ECG ---
Date Performed: 09/20/2018 Time Performed: 20:51:40 PTAGE: 83 years EKG: Sinus rhythm INCOMPLETE RIGHT BUNDLE BRANCH BLOCK Poor R wave progression BORDERLINE ECG PREVIOUS TRACING : 09/20/2018 17.52 Since previous tracing, no significant change noted DOCTOR: Mateo Toney Interpretating Date/Time 09/21/2018 16:57:30
--- NOTE | 2018-09-21 17:02 | ECG ---
Date Performed: 09/20/2018 Time Performed: 17:52:19 PTAGE: 83 years EKG: Sinus rhythm WITH FIRST DEGREE AV BLOCK BORDERLINE LEFT AXIS DEVIATION INCOMPLETE RIGHT BUNDLE BRANCH BLOCK ABNOR MAL ECG PREVIOUS TRACING : 09/20/2018 13.18 Since previous tracing, no significant change noted DOCTOR: Mateo Toney Interpretating Date/Time 09/21/2018 17:00:58
--- NOTE | 2018-09-21 17:03 | ECG ---
Date Performed: 09/20/2018 Time Performed: 13:18:31 PTAGE: 83 years EKG: Sinus rhythm INCOMPLETE RIGHT BUNDLE BRANCH BLOCK ABNORMAL ECG INTERPRETATION BASED ON A DEFAULT AGE OF 40 YEARS PREVIOUS TRACING : 09/09/2018 19.29 Since previous tracing, no significant change noted DOCTOR: Mateo Toney Interpretating Date/Time 09/21/2018 17:02:33
== END 2018-09-21 15:32 | disposition home or self-care (01) ==
LOC: PHED 13:12 → PHEDA 13:12 → PH3 17:37
PROVIDERS: ADMIT Hospitalist; ATTEND Hospitalist